=== PATIENT | male | born 2000 | race Hispanic/Latino ===

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

== ENCOUNTER 2024-11-08 20:58 | Emergency (ER) | payer OTHER ==
[~2024-11-08] VITALS: Ht 165.1 cm; Wt 142.0 kg
[~2024-11-08 20:58] MED LIST changes: -IBUP-1022 PO; +IBUP600T42 PO
[2024-11-08 21:00] VITALS: BP 131/86; TEMP 98.7; O2SAT 97
== END 2024-11-08 22:45 | disposition left against medical advice (07) ==
LOC: M ED 20:58
DX: Z53.21 Procedure and treatment not carried out due to patient leaving prior to being seen by health care provider (principal)